=== PATIENT | male | born 1980 | race American Indian/Alaskan Native ===

== ENCOUNTER 2020-01-29 20:26 | Inpatient (IN) | payer OTHER ==
[2020-01-29] MEDS ORDERED: SODIUM CHLORIDE 0.9% 500 ML 500 ML IV ONE (22:01)
[2020-01-29] MEDS ORDERED: SODIUM CHLORIDE 0.9% 1000 ML IV SOLN IV ONE (22:07)
[2020-01-29] MEDS ORDERED: cefTRIAXone/NS 2 GM/100 ML 2 GM/100 ML BAG IV ONE (22:08)
[2020-01-29] MEDS ORDERED: AZITHROMYCIN 500 MG in SODIUM CHLORIDE 0.9% 250ML 250 ML IV ONE (22:08)
[2020-01-29] MEDS ORDERED: dexAMETHasone 4 MG/ML VIAL IV ONE (22:08)
--- NOTE | 2020-01-29 22:09 | Emergency Department Report ---
ED Shortness of Breath HPI - General Chief Complaint: Dyspnea/Respdistress Stated Complaint: LUCIA..COVID Time Seen by Provider: 01/29/20 22:04 Source: patient Mode of arrival: Stretcher Limitations: No Limitations - History of Present Illness Initial Comments: Patient is a 39-year-old male that presents emergency room with complaints of COVID-19, difficulty breathing, fever and cough. Patient was found to be hypoxic and triage and brought directly to the back. Patient states his symptoms started 2 weeks ago. Patient states his symptoms are worsening. Patient states short of breath better with rest and worse with exertion. Patient states he has a past medical history of asthma, prediabetes and morbid obesity. Patient denies diarrhea. Patient denies loss of smell. Patient denies chest pain. MD Complaint: shortness of breath, cough -: Sudden Severity: severe Consistency: constant Improves With: rest Worsens With: exertion Known History Of: asthma Context: recent URI - Related Data Home Oxygen Therapy: No Allergies Allergy/AdvReac Type Severity Reaction Status Date / Time No Known Allergies Allergy Verified 01/29/20 22:07 ED Review of Systems ROS: Stated complaint: LUCIA..COVID Other details as noted in HPI Constitutional: chills, fever, malaise Eyes: denies: eye pain, eye discharge, vision change ENT: denies: ear pain, throat pain Respiratory: cough, shortness of breath. denies: wheezing Cardiovascular: denies: chest pain, palpitations Endocrine: no symptoms reported Gastrointestinal: denies: abdominal pain, nausea, diarrhea Genitourinary: denies: urgency, dysuria Musculoskeletal: denies: back pain, joint swelling, arthralgia Skin: denies: rash, lesions Neurological: denies: headache, weakness, paresthesias Psychiatric: denies: anxiety, depression Hematological/Lymphatic: denies: easy bleeding, easy bruising ED Past Medical Hx - Past Medical History Previous Medical History?: Yes Hx Asthma: Yes Additional medical history: Morbid Obesity - Surgical History Past Surgical History?: No - Family History Family history: no significant - Social History Smoking Status: Never Smoker Substance Use Type: None ED Physical Exam - General Limitations: No Limitations General appearance: alert, in no apparent distress - Head Head exam: Present: atraumatic, normocephalic - Eye Eye exam: Present: normal appearance - ENT ENT exam: Present: mucous membranes moist - Neck Neck exam: Present: normal inspection - Respiratory Respiratory exam: Present: normal lung sounds bilaterally. Absent: respiratory distress - Cardiovascular Cardiovascular Exam: Present: regular rate, normal rhythm. Absent: systolic murmur, diastolic murmur, rubs, gallop - GI/Abdominal GI/Abdominal exam: Present: soft, normal bowel sounds - Rectal Rectal exam: Present: deferred - Extremities Exam Extremities exam: Present: normal inspection - Back Exam Back exam: Present: normal inspection - Neurological Exam Neurological exam: Present: alert, oriented X3 - Psychiatric Psychiatric exam: Present: normal affect, normal mood - Skin Skin exam: Present: warm, dry, intact, normal color. Absent: rash ED Course Vital Signs 01/29/20 21:42 Temperature 102.6 F H Pulse Rate 95 H Respiratory 18 Rate Blood Pressure 133/81 O2 Sat by Pulse 95 Oximetry - Reevaluation(s) Reevaluation #1: Patient was found to be hypoxic in triage. Patient was placed on 4 L of oxygen. 01/29/20 22:09 Reevaluation #2: I discussed all results with patient. I discussed plan of care with patient. Patient agrees with plan of care and admission. Patient to be admitted to the hospitalist service. 01/30/20 00:07 - Consultations Consultation #1: Infectious disease consulted. 01/30/20 00:01 Consultation #2: Hospitalist consulted for admission. Hospitalist to admit patient. 01/30/20 00:07 ED Medical Decision Making - Lab Data Result diagrams: 01/29/20 22:47 01/29/20 22:47 - EKG Data -: EKG Interpreted by Me EKG shows normal: sinus rhythm, axis, intervals, QRS complexes, ST-T waves Rate: normal - Radiology Data Radiology results: report reviewed, image reviewed interpreted by me: Chest x-ray: Bilateral pneumonia, no pneumothorax, no foreign body, no osseous findings.. CHEST 1 VIEW INDICATION: possible Sepsis. COMPARISON: None. FINDINGS: Support devices: None. Heart: Normal. Lungs/Pleura: There are somewhat patchy, rather diffuse bilateral airspace opacities. No pleural abnormality. IMPRESSION: 1. Patchy bilateral airspace opacities are concerning for bilateral pneumonia. Given the distribution, atypical/viral etiologies should be considered. - Medical Decision Making Patient is a 39-year-old male that presents emergency room with complaints of cough, fever, shortness of breath, syncopal episode. Patient diagnosed with Covid 2 weeks ago. Patient symptoms are worsening. Patient found to be hypoxic in triage. Patient daily placed on 2 L of oxygen. Patient oxygenation improved. Patient given fluids and antibiotics early in the stay. Patient was given Decadron. Patient had labs which were essentially unremarkable except for elevated inflammatory markers. Patient's chest x-ray shows bilateral viral pneumonia. Patient's admitted to the hospital service for further evaluation and treatment. - Differential Diagnosis Covid, pneumonia, hypoxia, bronchitis, fever Critical Care Time: Yes Critical care time in (mins) excluding proc time.: 35 Critical care attestation.: If time is entered above; I have spent that time in minutes in the direct care of this critically ill patient, excluding procedure time. Critical Care Time: 35 minutes ED Disposition Clinical Impression: Hypoxia, COVID-19 Pneumonia Qualifiers: Pneumonia type: due to unspecified organism Laterality: bilateral Lung location: unspecified part of lung Qualified Code(s): J18.9 - Pneumonia, unspecified organism Respiratory failure Qualifiers: Chronicity: acute Respiratory failure complication: hypoxia Qualified Code(s): J96.01 - Acute respiratory failure with hypoxia Obesity Qualifiers: Obesity type: unspecified obesity type Obesity classification: adult class 3 (BMI >= 40) Serious obesity comorbidity presence: without serious comorbidity Body mass index: BMI 50.0-59.9 Qualified Code(s): E66.01 - Morbid (severe) obesity due to excess calories Disposition: OP ADMIT IP TO THIS HOSP Is pt being admited?: Yes Does the pt Need Aspirin: No Condition: Critical Instructions: Bacterial Pneumonia (ED) Time of Disposition: 00:10
--- NOTE | 2020-01-29 22:59 | XRay Report ---
CHEST 1 VIEW INDICATION: possible Sepsis. COMPARISON: None. FINDINGS: Support devices: None. Heart: Normal. Lungs/Pleura: There are somewhat patchy, rather diffuse bilateral airspace opacities. No pleural abno rmality. IMPRESSION: 1. Patchy bilateral airspace opacities are concerning for bilateral pneumonia. Given the distribution , atypical/viral etiologies should be considered. Signer Name: Teto Kohler MD Signed: 01/29/2020 10:55 PM Workstation Name: [id number]
[2020-01-29 23:21] LABS: Basophils % (Auto) 0.1 % (0.0-1.8); Eosinophils % (Auto) 0.1 % (0.0-4.3); Hematocrit 38.1 % (35.5-45.6); Hemoglobin 12.9 gm/dl (11.8-15.2); Lymphocytes % (Auto) 30.2 % (13.4-35.0); Mean Corpuscular HGB Conc 34 % (32-34); Mean Corpuscular Volume 85 fl (84-94); Monocytes # (Auto) 0.2 K/mm3 (0.0-0.8); Monocytes % (Auto) 5.7 % (0.0-7.3); Platelet Count 138 K/mm3 (140-440); Red Blood Count 4.51 M/mm3 (3.65-5.03); Red Cell Distribution Width 17.8 % (13.2-15.2)
[2020-01-29 23:27] LABS: INR 1.02 (0.87-1.13)
[2020-01-29 23:44] LABS: Alanine Aminotransferase 19 units/L (7-56); Albumin 3.7 g/dL (3.9-5); BUN/Creatinine Ratio 7; Blood Urea Nitrogen 9 mg/dL (9-20); Hemolysis Index 3
[2020-01-29 23:45] LABS: C-Reactive Protein 5.8 mg/dL (0.00-1.30)
[2020-01-30] MEDS ORDERED: ACETAMINOPHEN 325 MG TAB PO PRN (02:01)
[2020-01-30] MEDS ORDERED: HEPARIN 5,000 UNIT/1 ML VIAL ONE (02:51)
[2020-01-30] MEDS: HEPARIN 5,000 UNIT/1 ML VIAL SUB-Q SCH ×3 (03:16→21:01)
--- NOTE | 2020-01-30 03:29 | History and Physical Report ---
History of Present Illness Date of examination: 01/30/20 Date of admission: 01/30/20 00:22 Chief complaint: Fever, Cough and Shortness of breath History of present illness: 39 year old male with Past Medical history of Morbid obesity, asthma, Prediabetes and recent positive COVID test presenting with fever, cough, shortness of breath and hypoxia going on for about 2 weeks. There is no history of nausea and vomiting, headache, or dizziness. Past History Past Medical History: diabetes, other (COVID -19 , ASTHMA, MORBID OBESITY) Past Surgical History: No surgical history Social history: no significant social history Family history: no significant family history Medications and Allergies Allergies Allergy/AdvReac Type Severity Reaction Status Date / Time No Known Allergies Allergy Verified 01/29/20 22:07 Active Meds: Active Medications Acetaminophen (Tylenol) 650 mg PO Q4H PRN PRN Reason: Fever >101 Dexamethasone (Decadron) 6 mg IV DAILY MELODY Guaifenesin (Robitussin) 200 mg PO Q4H PRN PRN Reason: Cough Heparin Sodium (Porcine) (Heparin) 5,000 unit SUB-Q Q12HR [facility] Last Admin: 01/30/20 03:16 Dose: 5,000 unit Documented by: Azithromycin 500 mg/ Sodium (Chloride) 250 mls @ 250 mls/hr IV Q24HR@2200 MELODY; Protocol Ceftriaxone Sodium (Rocephin/Ns 2 Gm/100 Ml) 2 gm in 100 mls @ 200 mls/hr IV Q24HR@2200 MELODY; Protocol Review of Systems Constitutional: fever, chills, weakness, no sweats, no night sweats, no anor exia, no fatigue Eyes: bilateral: other (NO BILATERAL EYE SYMPTOM) Ears, nose, mouth and throat: no ear pain Cardiovascular: shortness of breath, no chest pain, no palpitations, no rapid/irregular heart beat, no syncope, no lightheadedness Respiratory: cough, shortness of breath, dyspnea on exertion, no cough with sputum, no excessive sputum, no hemoptysis, no congestion, no wheezing, no pleurisy, no pain Gastrointestinal: no abdominal pain, no nausea, no vomiting, no diarrhea, no constipation, no hematemesis, no hematochezia Genitourinary Male: no dysuria, no hematuria, no urinary frequency Musculoskeletal: neck stiffness, neck pain Integumentary: no rash, no pruritis, no redness, no sores, no wounds Neurological: no paralysis, no weakness, no parathesias, no numbness, no tingling, no seizures, no headaches, no confusion Psychiatric: no anxiety, no depression Endocrine: no polydipsia, no polyuria, no nocturia Hematologic/Lymphatic: no easy bruising, no easy bleeding Exam - Constitutional Vitals: Temp Pulse Resp BP Pulse Ox 98.6 F 90 26 H 109/40 95 01/30/20 02:22 01/30/20 02:22 01/30/20 02:22 01/30/20 02:22 01/30/20 02:22 General appearance: Present: no acute distress - EENT Eyes: Present: PERRL, EOM intact ENT: hearing intact, clear oral mucosa - Neck Neck: Present: supple, normal ROM - Respiratory Respiratory effort: normal - Cardiovascular Heart Sounds: Present: S1 & S2, gallop. Absent: systolic murmur, diastolic murmur, click - Extremities Extremities: no ischemia, No edema Peripheral Pulses: within normal limits - Abdominal General gastrointestinal: Present: soft, non-tender, non-distended. Absent: tender, distended, rigid Male genitourinary: Present: deferred - Rectal Rectal Exam: deferred - Integumentary Integumentary: Present: clear, warm, dry - Musculoskeletal Musculoskeletal: strength equal bilaterally - Psychiatric Psychiatric: appropriate mood/affect HEART Score - HEART Score Risk factors: No known risk factors Troponin: < normal limit - Critical Actions Critical Actions: 0-3 pts:0.9-1.7%risk of adverse cardiac event.Candidate for discharge Results - Labs CBC & Chem 7: 01/29/20 22:47 01/29/20 22:47 Labs: Laboratory Last Values WBC 3.4 K/mm3 (4.5-11.0) L 01/29/20 22:47 RBC 4.51 M/mm3 (3.65-5.03) 01/29/20 22:47 Hgb 12.9 gm/dl (11.8-15.2) 01/29/20 22:47 Hct 38.1 % (35.5-45.6) 01/29/20 22:47 MCV 85 fl (84-94) 01/29/20 22:47 MCH 29 pg (28-32) 01/29/20 22:47 MCHC 34 % (32-34) 01/29/20 22:47 RDW 17.8 % (13.2-15.2) H 01/29/20 22:47 Plt Count 138 K/mm3 (140-440) L 01/29/20 22:47 Lymph % (Auto) 30.2 % (13.4-35.0) 01/29/20 22:47 Clarke % (Auto) 5.7 % (0.0-7.3) 01/29/20 22:47 Eos % (Auto) 0.1 % (0.0-4.3) 01/29/20 22:47 Baso % (Auto) 0.1 % (0.0-1.8) 01/29/20 22:47 Lymph # (Auto) 1.0 K/mm3 (1.2-5.4) L 01/29/20 22:47 Clarke # (Auto) 0.2 K/mm3 (0.0-0.8) 01/29/20 22:47 Eos # (Auto) 0.0 K/mm3 (0.0-0.4) 01/29/20 22:47 Baso # (Auto) 0.0 K/mm3 (0.0-0.1) 01/29/20 22:47 Seg Neutrophils % 63.9 % (40.0-70.0) 01/29/20: Seg Neutrophils # 2.1 K/mm3 (1.8-7.7) 01/29/20 22:47 PT 13.3 Sec. (12.2-14.9) 01/29/20 22:47 INR 1.02 (0.87-1.13) 01/29/20 22:47 D-Dimer 149.43 ng/mlDDU (0-234) 01/29/20 22:47 VBG pH 7.339 (7.320-7.420) 01/29/20 22:47 Sodium 139 mmol/L (137-145) 01/29/20 22:47 Potassium 3.8 mmol/L (3.6-5.0) 01/29/20 22:47 Chloride 103.0 mmol/L (98-107) 01/29/20 22:47 Carbon Dioxide 26 mmol/L (22-30) 01/29/20 22:47 Anion Gap 14 mmol/L 01/29/20 22:47 BUN 9 mg/dL (9-20) 01/29/20 22:47 Creatinine 1.3 mg/dL (0.8-1.3) 01/29/20 22:47 Estimated GFR > 60 ml/min 01/29/20 22:47 BUN/Creatinine Ratio 7 % 01/29/20 22:47 Glucose 107 mg/dL (75-100) H 01/29/20 22:47 Glucose 108 mg/dL (75-100) H 01/29/20 22:47 Lactic Acid 0.60 mmol/L (0.7-2.0) L 01/30/20 01:37 Calcium 8.0 mg/dL (8.4-10.2) L 01/29/20 22:47 Ferritin 389.7 ng/mL (30.0-300.0) H 01/29/20 22:47 Total Bilirubin 0.60 mg/dL (0.1-1.2) 01/29/20 22:47 AST 30 units/L (5-40) 01/29/20 22:47 ALT 19 units/L (7-56) 01/29/20 22:47 Alkaline Phosphatase 76 units/L (35-129) 01/29/20 22:47 Lactate Dehydrogenase 340 units/L (91-180) H 01/29/20 22:47 C-Reactive Protein 5.80 mg/dL (0.00-1.30) H 01/29/20 22:47 Total Protein 7.2 g/dL (6.3-8.2) 01/29/20 22:47 Albumin 3.7 g/dL (3.9-5) L 01/29/20 22:47 Albumin/Globulin Ratio 1.1 % 01/29/20 22:47 Assessment and Plan - Patient Problems (1) COVID-19 Current Visit: Yes Status: Acute Plan to address problem: 1. CONTACT/DROPLET/AIRBORNE ISOLATION 2. INFECTIOUS DISEASE CONSULT 3. I.V DEXAMETHASONE (2) Hypoxia Current Visit: Yes Status: Acute Plan to address problem: OXYGEN BY NASAL CANULLA (3) Pneumonia Current Visit: Yes Status: Acute Qualifiers: Pneumonia type: due to unspecified organism Laterality: bilateral Lung lo cation: unspecified part of lung Qualified Code(s): J18.9 - Pneumonia, unspecified organism Plan to address problem: 1. I.V ZITHROMAX ANTIBIOTIC 2. I.V ROCEPHINE ANTIBIOTIC 3. TYLENOL FOR FEVER 4. ROBITUSSIN FOR COUGH
[2020-01-30] MEDS ORDERED: dexAMETHasone 4 MG/ML VIAL IV SCH (10:00)
--- NOTE | 2020-01-30 10:44 | Event Note ---
Date: 01/30/20 This is a 39-year-old morbidly obese male presented to the hospital after being positive for COVID-19 2 weeks ago with complaints of worsening shortness of breath. We will change his IV steroid to Solu-Medrol 80 mg every 8 hour as his BMI is 54.8 Will wait for pending repeat Covid test, will order for COVID 19 antibody We will follow ID recommendations
[2020-01-30] MEDS ORDERED: REMDESIVIR 200 MG in SODIUM CHLORIDE 0.9% 250ML 250 ML IV ONE (11:00)
[2020-01-30] MEDS ORDERED: REMDESIVIR 100 MG VIAL IV ONE (11:00)
[2020-01-30] MEDS: SODIUM CHLORIDE 0.9% 50 ML IVPB IV SCH (12:17)
[2020-01-30] MEDS: methylPREDNISolone Sod Succinate 125 MG/2 ML INJ IV SCH ×2 (13:30→21:00)
[2020-01-30] MEDS: guaiFENesin 100 MG/5 ML ORAL LIQD PO PRN (21:06)
[2020-01-30] MEDS ORDERED: cefTRIAXone/NS 2 GM/100 ML 2 GM/100 ML BAG IV SCH (22:00)
[2020-01-30] MEDS ORDERED: AZITHROMYCIN 500 MG in SODIUM CHLORIDE 0.9% 250ML 250 ML IV SCH (22:00)
[2020-01-30 23:21] LABS: Bilirubin,Urine NEG (Negative); Blood,Urine NEG (Negative); Color,Urine Yellow (Yellow); Mucus,Urine FEW /HPF; Urobilinogen,Urine < 2.0 mg/dL (<2.0)
[2020-01-31] MEDS: methylPREDNISolone Sod Succinate 125 MG/2 ML INJ IV SCH ×3 (06:18→22:03)
[2020-01-31] MEDS: HEPARIN 5,000 UNIT/1 ML VIAL SUB-Q SCH ×2 (09:04→22:03)
--- NOTE | 2020-01-31 11:51 | Consultation ---
History of Present Illness - Reason for Consult Consult date: 01/31/20 - History of Present Illness 39-year-old man past medical history morbid obesity, asthma, hyperglycemia admitted to the hospital complaining of fevers, cough, shortness of breath, and hypoxia. He notes symptoms began approximately 2 weeks prior to admission and that he tested positive for Covid as an outpatient. He otherwise denies any symptoms. Febrile on admission to 102.6 with a white count of 3.4. He is currently on remdesivir and methylprednisolone due to his size. Covid testing positive, antibody is negative. Blood cultures currently pending. He is currently on 3 L nasal cannula. Imaging personally reviewed: Chest x-ray: Patchy bilateral airspace opacities. Review of Systems: Bold if positive, otherwise negative General: fevers, chills, rigors HEENT: visual disturbance, diplopia, eye pain Respiratory: cough, sputum, hemoptysis, shortness of breath Cardiovascular: chest pain, syncope Gastrointestinal: nausea, vomiting, diarrhea, abdominal pain Genitourinary: dysuria, hematuria, flank pain Musculoskeletal: neck pain, back pain, joint pain, edema Neurologic: headaches, seizures Hematologic: easy bruising or bleeding Endocrine: night sweats, acute weight loss Skin: rash, jaundice, redness Psychiatric: suicidal, homicidal ideation Past History Past Medical History: diabetes, other (COVID -19 , ASTHMA, MORBID OBESITY) Past Surgical History: No surgical history Social history: no significant social history Family history: no significant family history Medications and Allergies Allergies Allergy/AdvReac Type Severity Reaction Status Date / Time No Known Allergies Allergy Verified 01/29/20 22:07 Home Medications Medication Instructions Recorded Confirmed Last Taken Type No Known Home Medications [No 01/31/20 01/31/20 Unknown History Reported Home Medications] Active Meds: Active Medications Acetaminophen (Tylenol) 650 mg PO Q4H PRN PRN Reason: Fever >101 Last Admin: 01/30/20 21:07 Dose: 650 mg Documented by: Guaifenesin (Robitussin) 200 mg PO Q4H PRN PRN Reason: Cough Last Admin: 01/30/20 21:06 Dose: 200 mg Documented by: Heparin Sodium (Porcine) (Heparin) 5,000 unit SUB-Q Q12HR [facility] Last Admin: 01/31/20 09:04 Dose: 5,000 unit Documented by: REMDESIVIR 100 mg/ Sodium (Chloride) 250 mls @ 500 mls/hr IV Q24HR@2100 MELODY Stop: 02/03/20 21:29 Methylprednisolone Sodium Succinate (Solu-Medrol) 80 mg IV Q8HR [facility] Last Admin: 01/31/20 06:18 Dose: 80 mg Documented by: Sodium Chloride (Nacl 0.9%) 50 ml IV 2100 MELODY Stop: 02/03/20 21:01 Last Admin: 01/30/20 12:17 Dose: 50 ml Documented by: Physical Examination - Physical Exam Narrative exam: Physical exam deferred due to PPE conservation strategy. Please refer to primary team's note. - Constitutional Vitals: Vital Signs Temp Pulse Resp BP Pulse Ox 97.7 F 65 18 112/58 94 01/31/20 04:17 01/31/20 04:17 01/31/20 04:17 01/31/20 04:17 01/31/20 09:40 Temperature -Last 24 Hours Temperature 97.7 F Temperature 98.0 F Temperature 98.2 F Results - Labs CBC & Chem 7: 01/29/20 22:47 01/29/20 22:47 Labs: Abnormal lab results 01/30/20 Range/Units 10:46 Coronavirus (PCR) Positive A (Negative) Assessment and Plan Cultures: Blood culture Urine culture Sputum culture Wound culture A/P: 39-year-old man past medical history morbid obesity, prediabetes admitted to the hospital COVID-19 pneumonia. #Acute hypoxemic respiratory failure: Likely secondary to COVID-19 infection. Currently on 3 L nasal cannula #COVID-19 pneumonia: Patient presented with a week of symptoms, chest x-ray with diffuse bilateral infiltrates, admission O2 sats on room air. Inflammatory markers elevated - Ferritin CRP 32. D-dimer. These may represent early c ytokine storm. Patient is increased for micro-thrombotic and thromboembolic events. #Morbid obesity: BMI 54.8, associated with worse COVID-19 outcomes. #Prediabetes: Check lisinopril. Recs: -Continue methylprednisolone due to BMI greater than 50 -Continue remdesivir to complete 5 days. Monitor renal and hepatic function while receiving -Obtain every other day inflammatory markers - ferritin, Ddimer, CRP, LDH -Recommend administration of COVID-19 convalescent plasma due to negative antibody. Please order. Thank you for the consult, we will continue to follow. Claudy Martínez MD [facility] O: [phone] F: [phone]
[2020-01-31] MEDS: guaiFENesin 100 MG/5 ML ORAL LIQD PO PRN ×2 (13:30→22:03)
--- NOTE | 2020-01-31 15:24 | Progress Note ---
Assessment and Plan --Acute hypoxemic respiratory failure: Likely secondary to COVID-19 infection. Currently on 3 L nasal cannula --COVID-19 pneumonia: Inflammatory markers elevated Patient is increased risk for micro-thrombotic and thromboembolic events. -Continue methylprednisolone due to BMI greater than 50 -Continue remdesivir to complete 5 days. Monitor renal and hepatic function while receiving -Obtain every other day inflammatory markers - ferritin, Ddimer, CRP, LDH -order for COVID-19 convalescent plasma due to negative antibody. --Morbid obesity: BMI 54.8, dietary and exercise recommendation when clinically stable --DVT prophylaxis, continue to COVID-19 pneumonia and morbid obesity will place on therapeutic dose of Lovenox 01/30: Patient is positive for COVID-19 and COVID-19 antibody is negative. Patient initially tested positive about 2 weeks ago. Continue IV Solu-Medrol, ordered for 5 days of remdesivir, will also order for convalescent plasma after checking type and cross matching. Subjective Date of service: 01/31/20 Interval history: Patient seen and examined. Medical records and medication list reviewed. No acute event overnight noted by the RN. Patient complains of exertional dyspnea. Patient is tolerating diet. Negative for COVID-19 antibody, ordered for convalescent plasma Discussed plan of care at bedside with patient. Objective - Exam Narrative Exam: GENERAL: well-developed and morbidly obese -Swiss male lying on bed appeared to be in no discomfort. HEENT: Normocephalic. Atraumatic. No conjunctival congestion or icterus. Patient has moist mucous membranes. NECK: Supple. Trachea midline. CHEST/LUNGS: Diminished breath sound auscultated bilaterally, breathing nonlabored. HEART/CARDIOVASCULAR: Regular in rate and rhythm. S1 and S2 positive. ABDOMEN: Abdomen is soft, nontender. Patient has normal bowel sounds. SKIN: There is no rash. Warm and dry. NEURO: No focal motor deficit. Follows command. MUSCULOSKELETAL: No joint effusion or tenderness. EXTRIMITY: No edema, no cyanosis or clubbing. PSYCH: Cooperative. - Constitutional Vitals: Vital Signs - 12hr 01/31/20 01/31/20 01/31/20 04:17 09:40 10:55 Temperature 97.7 F 98.0 F Pulse Rate 65 66 Respiratory 18 18 Rate Blood Pressure 112/58 117/61 O2 Sat by Pulse 86 94 93 Oximetry - Labs CBC & Chem 7: 01/29/20 22:47 01/29/20 22:47 HEART Score - HEART Score Risk factors: No known risk factors Troponin: < normal limit - Critical Actions Critical Actions: 0-3 pts:0.9-1.7%risk of adverse cardiac event.Candidate for discharge
[2020-01-31] MEDS ORDERED: SODIUM CHLORIDE 0.9% 250ML 250 ML IV ONE (17:44)
[2020-01-31] MEDS ORDERED: REMDESIVIR 100 MG in SODIUM CHLORIDE 0.9% 250ML 250 ML IV SCH (21:00)
[2020-01-31] MEDS: REMDESIVIR 100 MG in SODIUM CHLORIDE 0.9% 250ML 250 ML IV SCH (22:03)
[2020-02-01] MEDS: methylPREDNISolone Sod Succinate 125 MG/2 ML INJ IV SCH ×3 (05:54→21:49)
[2020-02-01] MEDS: HEPARIN 5,000 UNIT/1 ML VIAL SUB-Q SCH ×2 (12:40→21:49)
--- NOTE | 2020-02-01 14:33 | Progress Note ---
Assessment and Plan --Acute hypoxemic respiratory failure: Likely secondary to COVID-19 infection. Currently on 3 L nasal cannula --COVID-19 pneumonia: Inflammatory markers elevated Patient is increased risk for micro-thrombotic and thromboembolic events. -Continue methylprednisolone due to BMI greater than 50 -Continue remdesivir to complete 5 days. Monitor renal and hepatic function while receiving -Status post convalescent plasma as patient was negative for serum COVID-19 antibody -Obtain every other day inflammatory markers - ferritin, Ddimer, CRP, LDH --Morbid obesity: BMI 54.8, dietary and exercise recommendation when clinically stable --DVT prophylaxis, continue to COVID-19 pneumonia and morbid obesity will place on therapeutic dose of Lovenox Brief History: This is a 39-year-old morbidly obese male presented to the hospital after being positive for COVID-19 2 weeks ago with complaints of worsening shortness of breath. 01/30: Patient is positive for COVID-19 and COVID-19 antibody is negative. Patient initially tested positive about 2 weeks ago. Continue IV Solu-Medrol, ordered for 5 days of remdesivir, will also order for convalescent plasma after checking type and cross matching. 01/31: Received convalescent plasma therapy yesterday. Day 3 of remdesivir treatment today. Continue dexamethasone p.o., follow inflammatory markers. wean off O2 as tolerated. check home O2 requirement on discharge. Subjective Date of service: 02/01/20 Interval history: Patient seen and examined. Medical records and medication list reviewed. No acute event overnight noted by the RN. Patient feeling better today. Patient is tolerating diet. received convalescent plasma yesterday Discussed plan of care at bedside with patient. Objective - Exam Narrative Exam: GENERAL: well-developed and morbidly obese -[place]ag[place] male lying on bed appeared to be in no discomfort. HEENT: Normocephalic. Atraumatic. No conjunctival congestion or icterus. Patient has moist mucous membranes. NECK: Supple. Trachea midline. CHEST/LUNGS: Diminished breath sound auscultated bilaterally, breathing nonlabored. HEART/CARDIOVASCULAR: Regular in rate and rhythm. S1 and S2 positive. ABDOMEN: Abdomen is soft, nontender. Patient has normal bowel sounds. SKIN: There is no rash. Warm and dry. NEURO: No focal motor deficit. Follows command. MUSCULOSKELETAL: No joint effusion or tenderness. EXTRIMITY: No edema, no cyanosis or clubbing. PSYCH: Cooperative. - Constitutional Vitals: Vital Signs - 12hr 02/01/20 05:18 Temperature 98.7 F Pulse Rate 63 Respiratory 18 Rate Blood Pressure 125/83 O2 Sat by Pulse 94 Oximetry - Labs CBC & Chem 7: 01/29/20 22:47 01/29/20 22:47 HEART Score - HEART Score Risk factors: No known risk factors Troponin: < normal limit - Critical Actions Critical Actions: 0-3 pts:0.9-1.7%risk of adverse cardiac event.Candidate for discharge
[2020-02-01 16:23] LABS: C-Reactive Protein 1.5 mg/dL (0.00-1.30)
--- NOTE | 2020-02-01 17:42 | Progress Note ---
Assessment and Plan Cultures: Blood culture Urine culture Sputum culture Wound culture A/P: 39-year-old man past medical history morbid obesity, prediabetes admitted to the hospital COVID-19 pneumonia. #Acute hypoxemic respiratory failure: Likely secondary to COVID-19 infection. Currently on 6 L Salter nasal cannula #COVID-19 pneumonia: Patient presented with a week of symptoms, chest x-ray with diffuse bilateral infiltrates, admission O2 sats on room air. Inflammatory markers elevated - Ferritin CRP 32. D-dimer. These may represent early cytokin e storm. Patient is increased for micro-thrombotic and thromboembolic events. #Morbid obesity: BMI 54.8, associated with worse COVID-19 outcomes. #Prediabetes: Check lisinopril. Recs: -Continue methylprednisolone due to BMI greater than 50 -Continue remdesivir to complete 5 days. Monitor renal and hepatic function while receiving -Obtain every other day inflammatory markers - ferritin, Ddimer, CRP, LDH -Recommend administration of COVID-19 convalescent plasma due to negative antibody. Thank you for the consult, we will continue to follow. Claudy Martínez MD [facility] ([facility]) O: [phone] F: [phone] Subjective Date of service: 02/01/20 Interval history: Afebrile, no other acute changes at present. Blood cultures negative. Currently on 6 L high flow nasal cannula. Objective - Exam Narrative Exam: Physical exam deferred due to PPE conservation strategy. Please refer to primary team's note. - Constitutional Vitals: Vital Signs Temp Pulse Resp BP Pulse Ox 98.7 F 63 18 125/83 100 02/01/20 05:18 02/01/20 05:18 02/01/20 05:18 02/01/20 05:18 02/01/20 15:03 Temperature -Last 24 Hours Temperature 98.7 F Temperature 98.3 F - Labs CBC & Chem 7: 01/29/20 22:47 01/29/20 22:47 Labs: Abnormal lab results 02/01/20 02/01/20 Range/Units 15:15 15:15 Ferritin 437.5 H (30.0-300.0) ng/mL Lactate Dehydrogenase 387 H (91-180) units/L C-Reactive Protein 1.50 H (0.00-1.30) mg/dL
[2020-02-01] MEDS: REMDESIVIR 100 MG in SODIUM CHLORIDE 0.9% 250ML 250 ML IV SCH (21:48)
[2020-02-01] MEDS: SODIUM CHLORIDE 0.9% 50 ML IVPB IV SCH ×2 (21:48→21:49)
[2020-02-02] MEDS: methylPREDNISolone Sod Succinate 125 MG/2 ML INJ IV SCH (05:59)
[2020-02-02 06:29] LABS: Alanine Aminotransferase 24 units/L (7-56); Albumin 3.4 g/dL (3.9-5); BUN/Creatinine Ratio 17; Blood Urea Nitrogen 17 mg/dL (9-20); Calcium 7.5 mg/dL (8.4-10.2); Hemolysis Index 7
--- NOTE | 2020-02-02 09:15 | Progress Note ---
Assessment and Plan Assessment and plan: --Acute hypoxemic respiratory failure: Likely secondary to COVID-19 infection. Currently on 3 L nasal cannula --COVID-19 pneumonia: Inflammatory markers elevated Patient is increased risk for micro-thrombotic and thromboembolic events. -Continue methylprednisolone due to BMI greater than 50 -Continue remdesivir to complete 5 days. Monitor renal and hepatic function while receiving -Status post convalescent plasma as patient was negative for serum COVID-19 antibody -Obtain every other day inflammatory markers - ferritin, Ddimer, CRP, LDH --Morbid obesity: BMI 54.8, dietary and exercise recommendation when clinically stable --Obstructive sleep apnea per the patient noncompliant with his CPAP --DVT prophylaxis, continue to COVID-19 pneumonia and morbid obesity will place on therapeutic dose of Lovenox Brief History: This is a 39-year-old morbidly obese male presented to the hospital after being positive for COVID-19 2 weeks ago with complaints of worsening shortness of breath. 01/30: Patient is positive for COVID-19 and COVID-19 antibody is negative. Lamar nguyen initially tested positive about 2 weeks ago. Continue IV Solu-Medrol, ordered for 5 days of remdesivir, will also order for convalescent plasma after checking type and cross matching. 01/31: Received convalescent plasma therapy yesterday. Day 3 of remdesivir treatment today. Continue dexamethasone p.o., follow inflammatory markers. wean off O2 as tolerated. check home O2 requirement on discharge. 02/01: Continue current management. Patient with no adverse reaction from plasma therapy. Day 4 of 5 of Remdesivir. History Interval history: Patient informs me that he uses oxygen at home but has not been using his CPAP machine for his obstructive sleep apnea and that he wants to leave I did describe the severity of his illness to him and Covid and his high steroid use at this time. Nevertheless he states that he wants to sign out AMA that he has 2 kids at home. I did also advised the nurse to actually also speak to him please with him that we should watch him today see how well he is doing on his oxygen prior to discharge and be given to taper down his steroids. Hospitalist Physical - Physical exam Narrative exam: VITAL SIGNS: Reviewed. GENERAL: The patient appears normally developed, morbidly obese notably short of breath vital signs as documented. HEAD: No signs of head trauma. EYES: Pupils are equal. Extraocular motions intact. EARS: Hearing grossly intact. MOUTH: Oropharynx is normal. NECK: No adenopathy, no JVD. CHEST: Chest with diminished breath sounds bilaterally. No wheezes, rales, or rhonchi. CARDIAC: Regular rate and rhythm. S1 and S2, without murmurs, gallops, or rubs. VASCULAR: No Edema. Peripheral pulses normal and equal in all extremities. ABDOMEN: Soft, non tender and non distended. No rebound or guarding, and no masses palpated. Bowel Sounds normal. MUSCULOSKELETAL: Good range of motion of all major joints. Extremities without clubbing, cyanosis or edema. NEUROLOGIC EXAM: Alert and oriented x 3 No focal sensory or strength deficits. Speech normal. Follows commands. PSYCHIATRIC: Mood normal. SKIN: detail exam as documented in skin assessment - Constitutional Vitals: Temp Pulse Resp BP Pulse Ox 98.7 F 56 L 18 102/50 96 02/01/20 05:18 02/02/20 04:35 02/02/20 04:35 02/02/20 04:35 02/02/20 04:35 General appearance: Present: no acute distress HEART Score - HEART Score Risk factors: No known risk factors Troponin: < normal limit - Critical Actions Critical Actions: 0-3 pts:0.9-1.7%risk of adverse cardiac event.Candidate for discharge Results - Labs CBC & Chem 7: 01/29/20 22:47 02/02/20 05:46 Labs: Laboratory Last Values WBC 3.4 K/mm3 (4.5-11.0) L 01/29/20 22:47 RBC 4.51 M/mm3 (3.65-5.03) 01/29/20 22:47 Hgb 12.9 gm/dl (11.8-15.2) 01/29/20 22:47 Hct 38.1 % (35.5-45.6) 01/29/20 22:47 MCV 85 fl (84-94) 01/29/20 22:47 MCH 29 pg (28-32) 01/29/20 22:47 MCHC 34 % (32-34) 01/29/20 22:47 RDW 17.8 % (13.2-15.2) H 01/29/20 22:47 Plt Count 138 K/mm3 (140-440) L 01/29/20 22:47 Lymph % (Auto) 30.2 % (13.4-35.0) 01/29/20 22:47 Menard % (Auto) 5.7 % (0.0-7.3) 01/29/20 22:47 Eos % (Auto) 0.1 % (0.0-4.3) 01/29/20 22:47 Baso % (Auto) 0.1 % (0.0-1.8) 01/29/20 22:47 Lymph # (Auto) 1.0 K/mm3 (1.2-5.4) L 01/29/20 22:47 Menard # (Auto) 0.2 K/mm3 (0.0-0.8) 01/29/20 22:47 Eos # (Auto) 0.0 K/mm3 (0.0-0.4) 01/29/20 22:47 Baso # (Auto) 0.0 K/mm3 (0.0-0.1) 01/29/20 22:47 Seg Neutrophils % 63.9 % (40.0-70.0) 01/29/20 22:47 Seg Neutrophils # 2.1 K/mm3 (1.8-7.7) 01/29/20 22:47 PT 13.3 Sec. (12.2-14.9) 01/29/20 22:47 INR 1.02 (0.87-1.13) 01/29/20 22:47 D-Dimer < 135.00 ng/mlDDU (0-234) 02/01/20 15:15 VBG pH 7.339 (7.320-7.420) 01/29/20 22:47 Sodium 139 mmol/L (137-145) 02/02/20 05:46 Potassium 3.9 mmol/L (3.6-5.0) 02/02/20 05:46 Chloride 103.1 mmol/L (98-107) 02/02/20 05:46 Carbon Dioxide 25 mmol/L (22-30) 02/02/20 05:46 Anion Gap 15 mmol/L 02/02/20 05:46 BUN 17 mg/dL (9-20) 02/02/20 05:46 Creatinine 1.0 mg/dL (0.8-1.3) 02/02/20 05:46 Estimated GFR > 60 ml/min 02/02/20 05:46 BUN/Creatinine Ratio 17 % 02/02/20 05:46 Glucose 179 mg/dL (75-100) H 02/02/20 05:46 Lactic Acid 0.60 mmol/L (0.7-2.0) L 01/30/20 01:37 Calcium 7.5 mg/dL (8.4-10.2) L 02/02/20 05:46 Ferritin 437.5 ng/mL (30.0-300.0) H 02/01/20 15:15 Total Bilirubin 0.50 mg/dL (0.1-1.2) 02/02/20 05:46 AST 25 units/L (5-40) 02/02/20 05:46 ALT 24 units/L (7-56) 02/02/20 05:46 Alkaline Phosphatase 63 units/L (35-129) 02/02/20 05:46 Lactate Dehydrogenase 387 units/L (91-180) H 02/01/20 15:15 C-Reactive Protein 1.50 mg/dL (0.00-1.30) H 02/01/20 15:15 Total Protein 6.8 g/dL (6.3-8.2) 02/02/20 05:46 Albumin 3.4 g/dL (3.9-5) L 02/02/20 05:46 Albumin/Globulin Ratio 1.0 % 02/02/20 05:46 Procalcitonin < 0.05 ng/mL (<0.15) 02/01/20 15:15 Urine Color Yellow (Yellow) 01/29/20 22:45 Urine Turbidity Clear (Clear) 01/29/20 22:45 Urine pH 6.0 (5.0-7.0) 01/29/20 22:45 Ur Specific [place] 1.024 (1.003-1.030) 01/29/20 22:45 Urine Protein 30 mg/dl mg/dL (Negative) 01/29/20 22:45 Urine Glucose (UA) Neg mg/dL (Negative) 01/29/20 22:45 Urine Ketones Neg mg/dL (Negative) 01/29/20 22:45 Urine Blood Neg (Negative) 01/29/20 22:45 Urine Nitrite Neg (Negative) 01/29/20 22:45 Urine Bilirubin Neg (Negative) 01/29/20 22:45 Urine Urobilinogen < 2.0 mg/dL (<2.0) 01/29/20 22:45 Ur Leukocyte Esterase Neg (Negative) 01/29/20 22:45 Urine WBC (Auto) 2.0 /HPF (0.0-6.0) 01/29/20 22:45 Urine RBC (Auto) 3.0 /HPF (0.0-6.0) 01/29/20 22:45 U Epithel Cells (Auto) 1.0 /HPF (0-13.0) 01/29/20 22:45 Urine Mucus Few /HPF 01/29/20 22:45 Coronavirus (PCR) Positive (Negative) A 01/30/20 10:46 SARS-CoV-2 IgG Ab Nonreactive (NonReactive) 01/30/20 15:09 Blood Type O POSITIVE 01/31/20 08:53 Antibody Screen Negative 01/31/20 08:53 Microbiology: Microbiology 01/29/20 23:30 Peripheral/Venous Blood Culture - Preliminary NO GROWTH AFTER 72 HOURS 01/29/20 22:47 Peripheral/Venous Blood Culture - Preliminary NO GROWTH AFTER 72 HOURS Baires/IV: Voiding Method Toilet IV Catheter Type [Right INT / Saline Lock Forearm] IV Catheter Type [Left Distal INT / Saline Lock Port Hand] Active Medications - Current Medications Current Medications: Generic Name Dose Route Start Last Admin Trade Name Freq PRN Reason Stop Dose Admin Acetaminophen 650 mg 01/30/20 02:01 01/30/20 21:07 Tylenol PO 650 mg Q4H PRN Administration Fever >101 Guaifenesin 200 mg 01/30/20 02:05 01/31/20 22:03 Robitussin PO 200 mg Q4H PRN Administration Cough Heparin Sodium (Porcine) 5,000 unit 01/30/20 02:00 02/01/20 21:49 Heparin SUB-Q 5,000 unit Q12HR MELODY Administration REMDESIVIR 100 mg/ Sodium 250 mls @ 500 mls/hr 01/31/20 21:00 02/02/20 00:14 Chloride IV 02/03/20 21:29 Infused Q24HR@2100 MELODY Infusion Methylprednisolone Sodium Succinate 80 mg 01/30/20 14:00 11/24/20 05:59 Solu-Medrol IV 80 mg Q8HR MELODY Administration Sodium Chloride 50 ml 01/30/20 12:00 02/01/20 21:49 Nacl 0.9% IV 02/03/20 21:01 50 ml 2100 MELODY Administration
[2020-02-02] MEDS: HEPARIN 5,000 UNIT/1 ML VIAL SUB-Q SCH (11:11)
[2020-02-02 12:39] VITALS: BP 117/57
--- NOTE | 2020-02-02 15:50 | Progress Note ---
Assessment and Plan Cultures: Blood culture Urine culture Sputum culture Wound culture A/P: 39-year-old man past medical history prediabetes admitted to the hospital COVID-19 pneumonia. #Acute hypoxemic respiratory failure: Likely secondary to COVID-19 infection. Currently on room air #COVID-19 pneumonia #Prediabetes Recs: -Continue methylprednisolone -Continue remdesivir to complete 5 days. Monitor renal and hepatic function while receiving -Obtain every other day inflammatory markers - ferritin, Ddimer, CRP, LDH Okay to discharge prior to completion of remdesivir with patient stable. Thank you for the consult, we will sign off. Please call questions. Claudy Martínez MD [facility] ([facility]) O: [phone] F: [phone] Subjective Date of service: 02/02/20 Interval history: Afebrile, no acute changes. Currently on room air. Objective - Exam Narrative Exam: Physical exam deferred due to PPE conservation strategy. Please refer to primary team's note. - Constitutional Vitals: Vital Signs Temp Pulse Resp BP Pulse Ox 98.7 F 65 18 117/57 91 02/02/20 10:47 02/02/20 10:47 02/02/20 10:47 02/02/20 10:47 02/02/20 10:47 Temperature -Last 24 Hours Temperature 98.7 F - Labs CBC & Chem 7: 01/29/20 22:47 02/02/20 05:46 Labs: Abnormal lab results 02/01/20 02/01/20 02/02/20 Range/Units 15:15 15:15 05:46 Glucose 179 H (75-100) mg/dL Calcium 7.5 L (8.4-10.2) mg/dL Ferritin 437.5 H (30.0-300.0) ng/mL Lactate Dehydrogenase 387 H (91-180) units/L C-Reactive Protein 1.50 H (0.00-1.30) mg/dL Albumin 3.4 L (3.9-5) g/dL
--- NOTE | 2020-02-03 15:56 | Discharge Summary ---
Providers - Providers Date of Admission: 01/30/20 00:22 Attending physician: MEGAN SAAVEDRA MD 01/30/20 00:03 Consult to Physician [CONS] Routine Comment: Consulting Provider: JAMES JACINTO Physician Instructions: Reason For Exam: pui [facility] Reason for admission: COVID-19 Condition: Critical Hospital course: Brief History: This is a 39-year-old morbidly obese male presented to the hospital after being positive for COVID-19 2 weeks ago with complaints of worsening shortness of breath. 01/30: Patient is positive for COVID-19 and COVID-19 antibody is negative. Patient initially tested positive about 2 weeks ago. Continue IV Solu-Medrol, ordered for 5 days of remdesivir, will also order for convalescent plasma after checking type and cross matching. 01/31: Received convalescent plasma therapy yesterday. Day 3 of remdesivir treatment today. Continue dexamethasone p.o., follow inflammatory markers. wean off O2 as tolerated. check home O2 requirement on discharge. 02/01: Continue current management. Patient with no adverse reaction from plasma therapy. Day 4 of 5 of Remdesivir. Patient left AGAINST MEDICAL ADVICE despite being on high flow oxygen and despite all instruction pleading with him not to be discharged considering his high risk. --Acute hypoxemic respiratory failure: Likely secondary to COVID-19 infection. Currently on 3 L nasal cannula --COVID-19 pneumonia: Inflammatory markers elevated Patient is increased risk for micro-thrombotic and thromboembolic events. -Continue methylprednisolone due to BMI greater than 50 -Continue remdesivir to complete 5 days. Monitor renal and hepatic function while receiving -Status post convalescent plasma as patient was negative for serum COVID-19 antibody -Obtain every other day inflammatory markers - ferritin, Ddimer, CRP, LDH --Morbid obesity: BMI 54.8, dietary and exercise recommendation when clinically stable --Obstructive sleep apnea per the patient noncompliant with his CPAP --DVT prophylaxis, continue to COVID-19 pneumonia and morbid obesity will place on therapeutic dose of Lovenox Disposition: LEFT AGAINST MED ADVICE Time spent for discharge: 35-minute Core Measure Documentation - Palliative Care Palliative Care/ Comfort Measures: Not Applicable - Core Measures Any of the following diagnoses?: none Exam - Physical Exam Narrative exam: VITAL SIGNS: Reviewed. GENERAL: The patient appears normally developed, morbidly obese notably short of breath vital signs as documented. HEAD: No signs of head trauma. EYES: Pupils are equal. Extraocular motions intact. EARS: Hearing grossly intact. MOUTH: Oropharynx is normal. NECK: No adenopathy, no JVD. CHEST: Chest with diminished breath sounds bilaterally. No wheezes, rales, or rhonchi. CARDIAC: Regular rate and rhythm. S1 and S2, without murmurs, gallops, or ru bs. VASCULAR: No Edema. Peripheral pulses normal and equal in all extremities. ABDOMEN: Soft, non tender and non distended. No rebound or guarding, and no masses palpated. Bowel Sounds normal. MUSCULOSKELETAL: Good range of motion of all major joints. Extremities without clubbing, cyanosis or edema. NEUROLOGIC EXAM: Alert and oriented x 3 No focal sensory or strength deficits. Speech normal. Follows commands. PSYCHIATRIC: Mood normal. SKIN: detail exam as documented in skin assessment - Constitutional Vitals: Temp Pulse Resp BP Pulse Ox 98.7 F 65 18 117/57 91 02/02/20 10:47 02/02/20 10:47 02/02/20 10:47 02/02/20 10:47 02/02/20 10:47 Plan Follow up with: BOLIVAR SCHULZALTON MD [facility] [Primary Care Provider] - 7 Days Prescriptions: Dexamethasone [Decadron] 6 mg PO DAILY #10 tablet Ipratropium/Albuterol Sulfate [DUONEB *Not for PRN Use*] 1 ampul IH Q6HR #90 ampul.neb guaiFENesin [Robitussin] 200 mg PO Q4H PRN #30 oral.liqd PRN Reason: Cough Ascorbic Acid [Vitamin C] 1,000 mg PO BID #60 tablet.er Zinc Sulfate 220 mg PO DAILY #30 tablet
== END 2020-02-02 11:45 | disposition left against medical advice (07) | DRG 177 ==
LOC: ED 20:26 → OBSVTOIN 01-30 00:22 → 3A 01-30 00:22
PROVIDERS: ADMIT Internal Medicine; ATTEND Internal Medicine
PROC: XW033E5 Introduction of Remdesivir Anti-infective into Peripheral Vein, Percutaneous Approach, New Technology Group 5 (ICD-10-PCS; principal; 2020-01-30)
DX: U07.1 COVID-19 (principal); J12.89 Other viral pneumonia; J96.01 Acute respiratory failure with hypoxia; Z68.43 Body mass index [BMI] 50.0-59.9, adult; J45.909 Unspecified asthma, uncomplicated; E66.01 Morbid (severe) obesity due to excess calories; E11.9 Type 2 diabetes mellitus without complications; Z53.29 Procedure and treatment not carried out because of patient's decision for other reasons; Z79.899 Other long term (current) drug therapy
CPT/HCPCS: 36415; 71045; 80053; 81001; 82140; 82728; 82805; 82947; 83615; 84145; 85025; 85379; 85610; 86140; 86850; 86900; 86901; 87040; 87086; 93005; 94660; 94760; 96365; 96367; 96375; G0378; J0456; J0696; J1100; J1644; J2930; J7030; J7050; U0003